=== PATIENT | female | born 2000 | race Caucasian/White ===

== ENCOUNTER 2020-06-27 19:54 | Emergency (ER) | payer OTHER ==
[2020-06-27 20:12] VITALS: BP 125/73; PULSE 93; RESP 18; TEMP 98.2
[2020-06-27] MEDS ORDERED: LIDOCAINE VISCOUS 2% 15 ML CUP MUCOUS MEM ONE (20:52)
[2020-06-27] MEDS ORDERED: AMOXIC-POT CLAV 875-125MG 1 EACH TAB PO STA (20:52)
--- NOTE | 2020-06-27 20:57 | ED ---
ENT HPI - General Chief complaint: ENT Stated complaint: Sore Throat Source: patient Mode of arrival: ambulatory Limitations: no limitations - History of Present Illness Initial comments: is a 20-year-old previous healthy female presents emergency room with reported sore throat. Patient states that it started early this morning. She took some Motrin and went to work for 10 hours. Reports that she came home and napped. Woke up in the pain persisted. The pain radiates down into her neck. Denies any fevers or chills. No nausea or vomiting. No sick contacts. Denies cough or shortness of breath. No concern for . No other alleviating, precipitating or modifying factors - Related Data Previous Rx's Medication Instructions Recorded Amoxicillin/Potassium Clav 1 tab PO Q12HR #20 tab 06/27/20 [Augmentin 875-125 Tablet] Allergies Allergy/AdvReac Type Severity Reaction Status Date / Time No Known Allergies Allergy Verified 06/27/20 20:13 Review of Systems ROS Statement: Those systems with pertinent positive or pertinent negative responses have been documented in the HPI. ROS Other: All systems not noted in ROS Statement are negative. Past Medical History Past Medical History: No Reported History History of Any Multi-Drug Resistant Organisms: None Reported Past Surgical History: No Surgical Hx Reported Smoking Status: Never smoker Past Alcohol Use History: None Reported Past Drug Use History: None Reported General Exam Limitations: no limitations Course Vital Signs 06/27/20 20:11 Temperature 98.2 F Pulse Rate 93 Respiratory 18 Rate Blood Pressure 125/73 O2 Sat by Pulse 100 Oximetry Medical Decision Making - Medical Decision Making Upon arrival patient was placed into room 20. There are history of physical exam is performed. Patient has bilateral tonsillar exudates. Rapid strep is performed and is positive per patient given a dose of Augmentin in the emergency department. She is also given viscous lidocaine. Instructed to take Motrin and Tylenol for pain and fever. Additional prescription for Augmentin is sent to the pharmacy. She needs to follow-up with primary care doctor in 2-4 days. Return to the emergency room for any worsening symptoms per patient was discharged home in stable condition - Lab Data Lab Results 06/27/20 Range/Units 20:52 Group A Strep Rapid Positive A (Negative) Disposition Clinical Impression: Pharyngitis Disposition: HOME SELF-CARE Condition: Stable Instructions (If sedation given, give patient instructions): Strep Throat (ED) Additional Instructions: Please follow up with your PCP in 2-4 days. Alternate taking Motrin and Tylenol every 6 hours. Return to the ED for any new or worsening symptoms. Prescriptions: Amoxicillin/Potassium Clav [Augmentin 875-125 Tablet] 1 tab PO Q12HR #20 tab Is patient prescribed a controlled substance at d/c from ED?: No Referrals: Thomas Lockwood MD [Primary Care Provider] - 1-2 days Time of Disposition: 20:56
== END 2020-06-27 21:11 | disposition home or self-care (01) ==
LOC: EC 19:54
DX: J02.9 Acute pharyngitis, unspecified (principal)
CPT/HCPCS: 87430; 99283